=== PATIENT | male | born 2000 | race Hispanic/Latino ===

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

== ENCOUNTER 2021-04-10 10:33 | Emergency (ER) | payer MEDICAID, OTHER ==
[~2021-04-10] VITALS: Ht 172.7 cm; Wt 72.6 kg
[2021-04-10 10:35] VITALS: BP 123/65
[2021-04-10] MEDS ORDERED: SULF1TAB42 PO (11:11)
== END 2021-04-10 11:44 | disposition home or self-care (01) ==
LOC: EDH 10:33
DX: L03.116 Cellulitis of left lower limb (principal)

== ENCOUNTER 2021-07-21 12:56 | Emergency (ER) | payer OTHER ==
[~2021-07-21] VITALS: Ht 172.7 cm; Wt 76.7 kg
[~2021-07-21 12:56] MED LIST: SULF1TAB42 PO
[2021-07-21 14:07] LABS: BASOPHILS % (AUTO) 0.3 % (0.0-5.0); EOSINOPHILS % (AUTO) 0.6 % (0.0-8.0); HEMATOCRIT 43.6 % (42-54); LYMPHOCYTES % (AUTO) 11.6 % (21.0-51.0); MEAN CORPUSCULAR HEMOGLOBIN 29.3 pg (27.0-33.0); MEAN CORPUSCULAR VOLUME 88.6 fL (80-100); NEUTROPHILS % (AUTO) 78.8 % (40.0-77.0); PLATELET COUNT (AUTO) 325 K/uL (130-400); RED BLOOD CELL COUNT(AUTO) 4.92 MIL/uL (4.50-6.20); RED CELL DISTRIBUTION WIDTH 13.1 % (11.0-15.5); WHITE BLOOD COUNT (AUTO) 15.7 K/uL (4.8-10.8)
[2021-07-21] MEDS ORDERED: CLINDAMYCIN IVPB 600MG/50ML 50 ML IV STA (14:15)
[2021-07-21 14:25] LABS: CREATININE 0.9 mg/dL (0.5-1.5); POTASSIUM 3.8 mmol/L (3.5-5.1)
[2021-07-21 14:30] LABS: ALBUMIN 4.2 g/dL (3.5-5.0); BILIRUBIN,TOTAL 0.4 mg/dL (0.2-1.0); TOTAL PROTEIN, SERUM 8.3 g/dL (6.0-8.3)
[2021-07-21] MEDS ORDERED: IOHEXOL-350 50ML VIAL IV ONE (14:57)
[2021-07-21 15:51] VITALS: BP 127/62
[2021-07-21] MEDS ORDERED: CLIN-141 PO (16:12)
== END 2021-07-21 17:07 | disposition home or self-care (01) ==
LOC: EDH 12:56 → UNDOADMIN 12:57 → EDHIP 12:57
DX: L03.211 Cellulitis of face (principal); R51.9 Headache, unspecified; Z79.899 Other long term (current) drug therapy
CPT/HCPCS: 36415; 70487; 80053; 85025; 96365; 99285; J3490; Q9967